=== PATIENT | female | born 1995 | race Caucasian/White ===

== ENCOUNTER → 2023-12-28 08:36 | Outpatient (REF) | payer OTHER, SELFPAY | LOC: PNTC 08:36 | PROVIDERS: ATTENDING PHYSICIAN Obstetrics & Gynecology | DX: Z36.0 Encounter for antenatal screening for chromosomal anomalies (principal); Z36.82 Encounter for antenatal screening for nuchal translucency | CPT/HCPCS: 76801; 76813 ==

== ENCOUNTER → 2024-01-25 09:17 | Outpatient (REF) | payer OTHER, SELFPAY | LOC: PNTC 09:17 | PROVIDERS: ATTENDING PHYSICIAN Obstetrics & Gynecology | DX: O99.210 Obesity complicating pregnancy, unspecified trimester (principal) | CPT/HCPCS: 76805 ==

== ENCOUNTER → 2024-02-22 09:15 | Outpatient (REF) | payer OTHER, SELFPAY | LOC: PNTC 09:15 | PROVIDERS: ATTENDING PHYSICIAN Obstetrics & Gynecology | DX: O99.210 Obesity complicating pregnancy, unspecified trimester (principal) | CPT/HCPCS: 76811 ==

== ENCOUNTER → 2024-03-21 09:18 | Outpatient (REF) | payer OTHER, SELFPAY | LOC: PNTC 09:18 | PROVIDERS: ATTENDING PHYSICIAN Obstetrics & Gynecology | DX: O99.210 Obesity complicating pregnancy, unspecified trimester (principal) | CPT/HCPCS: 76816 ==

== ENCOUNTER → 2024-04-15 08:56 | Outpatient (REF) | payer OTHER, SELFPAY ==
--- NOTE | 2024-04-15 09:39 | PN.DIAED06 ---
Meal Plan - Gestational
- Breakfast
Gestational Diabetes Meal Plan Name: 2000 calories
Breakfast - Total Carbohydrate (grams): 45
Breakfast - Starch Carbohydrate: 2
Breakfast - Fruit Carbohydrate: 0
Breakfast - Milk Carbohydrate: 1
Breakfast - Nonstarchy Vegetables: Yes
Breakfast - Meat/Protein: 1
Breakfast - Fat: 2
- Morning Snack
Morning Snack - Total Carbohydrate (grams): 30
Morning Snack - Starch Carbohydrate: 1
Morning Snack - Fruit Carbohydrate: 0
Morning Snack - Milk Carbohydrate: 1
Morning Snack - Nonstarchy Vegetables: Yes
Morning Snack - Meat/Protein: 0
Morning Snack - Fat: 0
- Lunch
Lunch - Total Carbohydrate (grams): 45
Lunch - Starch Carbohydrate: 1
Lunch - Fruit Carbohydrate: 1
Lunch - Milk Carbohydrate: 1
Lunch - Nonstarchy Vegetables: Yes
Lunch - Meat/Protein: 2
Lunch - Fat: 2
- Afternoon Snack
Afternoon Snack - Total Carbohydrate (grams): 30
Afternoon Snack - Starch Carbohydrate: 1
Afternoon Snack - Fruit Carbohydrate: 1
Afternoon Snack - Milk Carbohydrate: 0
Afternoon Snack - Nonstarchy Vegetables: Yes
Afternoon Snack - Meat/Protein: 1
Afternoon Snack - Fat: 0
- Dinner
Dinner - Total Carbohydrate (grams): 45
Dinner - Starch Carbohydrate: 2
Dinner - Fruit Carbohydrate: 1
Dinner - Milk Carbohydrate: 0
Dinner - Nonstarchy Vegetables: Yes
Dinner - Meat/Protein: 2
Dinner - Fat: 2
- Evening Snack
Evening Snack - Total Carbohydrate (grams): 45
Evening Snack - Starch Carbohydrate: 1
Evening Snack - Fruit Carbohydrate: 1
Evening Snack - Milk Carbohydrate: 1
Evening Snack - Nonstarchy Vegetables: Yes
Evening Snack - Meat/Protein: 1
Evening Snack - Fat: 0
--- NOTE | 2024-04-18 08:08 | PN.DIAED02 ---
Referral
Referred For: Gestational Diabetes Self-Management Training
PHI Release Authorization Form Signed: Yes
Care Plan
- Education Needs
Patient Education Needs: Preconception care//gestational diabetes management
Recommended Diabetes Training Program based on assessment: Gestational Diabetes Management
- Plan of Care
Plan of Care:
Met with Sanju for new diagnosis GDM. EDC07/07/24, gender unknown. Discussed what is occurring in her body and importance to maintain good blood sugar control to prevent complications (macrosomia, hypoglycemia). Provided with and instructions given
on the One Touch Verio glucometer, aware of testing pattern (FBS and 2 hr pp every meal), expected results (FBS <96 Mg/dl and 2 hr pp <120 mg/dl), testing technique and rotating testing sites. [facility],she has [facility] number. Log sheet provided to record results and Sanju will ttae if testing 1 hr pp (result <140 mg/dl). ISRAEL Irby to call in RX for test strips and lancets. Discussed macronutrients and impact each plays in glucose
metabolism. 5'7' 268# pre pregnanat. Provided with [id number] gordon ADA GDM meal plan. Sanju works [employer] sh[employer] [id number] so discussed how timing of meals is a little different from the provided meal plan. She typically sleeps for 4-6 hrs so FBS will
be skewed. Aware not to consume fruit/fruit juice for at least 5 hrs after waking. Provided with 'Choose Your foods' booklet, as GDM booklet and handout on snack options. Reviewed reading foods labels for tatal carbs in relation to serving size. She
has a spin bike but states that is getting difficult as the develops. Whe does walk 2-3 times/week. Sanju will call if any questions, she is aware that as the develops, that she may require insulin.
== END ==
LOC: DES 08:56
PROVIDERS: ATTENDING PHYSICIAN Obstetrics & Gynecology; FAMILY PHYSICIAN Nurse Practitioner Family
DX: O24.419 Gestational diabetes mellitus in pregnancy, unspecified control (principal)
CPT/HCPCS: 99078

== ENCOUNTER 2024-05-12 20:14 | Observation (INO) | payer OTHER, SELFPAY ==
[2024-05-12 20:34] VITALS: BP 139/70; BMI 45.5
== END 2024-05-12 21:07 | disposition home or self-care (01) ==
LOC: LDRP 20:14
PROVIDERS: ADMITTING PHYSICIAN Obstetrics & Gynecology; FAMILY PHYSICIAN Internal Medicine
DX: O36.8130 Decreased fetal movements, third trimester, not applicable or unspecified (principal); Z3A.32 32 weeks gestation of pregnancy; O24.410 Gestational diabetes mellitus in pregnancy, diet controlled; O13.3 Gestational [pregnancy-induced] hypertension without significant proteinuria, third trimester; Z79.82 Long term (current) use of aspirin
CPT/HCPCS: 59025; G0378

== ENCOUNTER → 2024-05-19 07:49 | Outpatient (REF) | payer OTHER, SELFPAY | LOC: PNTC 07:49 | PROVIDERS: ATTENDING PHYSICIAN Obstetrics & Gynecology | DX: O24.419 Gestational diabetes mellitus in pregnancy, unspecified control (principal) | CPT/HCPCS: 59025; 76816 ==

== ENCOUNTER → 2024-05-26 13:49 | Outpatient (REF) | payer OTHER, SELFPAY | LOC: PNTC 13:49 | PROVIDERS: ATTENDING PHYSICIAN Obstetrics & Gynecology | DX: O24.419 Gestational diabetes mellitus in pregnancy, unspecified control (principal) | CPT/HCPCS: 59025; 76815 ==

== ENCOUNTER → 2024-06-02 13:50 | Outpatient (REF) | payer OTHER, SELFPAY | LOC: PNTC 13:50 | PROVIDERS: ATTENDING PHYSICIAN Obstetrics & Gynecology | DX: O24.419 Gestational diabetes mellitus in pregnancy, unspecified control (principal) | CPT/HCPCS: 59025; 76815 ==

== ENCOUNTER 2024-06-04 08:28 | Observation (INO) | payer OTHER, SELFPAY ==
[2024-06-04 08:56] VITALS: BP 136/69; BMI 46.6
[2024-06-04 09:20] LABS: Hematocrit 37.6 % (37.0-47.0); Hemoglobin 12.6 g/dL (12.0-16.0); Mean Corp Hgb Conc. 33.5 g/dL (33.0-37.0); Mean Corpuscular Hgb 26.7 pg (27.0-31.0); Mean Corpuscular Volume 79.7 fL (81.0-99.0); Mean Platelet Volume 10.6 fL (7.4-10.4); Platelet Count 340 10^3/uL (130-400); Red Blood Cell Count 4.72 10^6/uL (4.20-5.40); Red Cell Dist. Width 13.8 % (11.5-14.5); Urine Albumin Negative (Neg - Trace); Urine Bilirubin Negative (Negative); Urine Character Clear (Clear); Urine Color Yellow; Urine Glucose Negative (Negative); Urine Ketone Negative (Negative); Urine Leukocyte Negative (Negative); Urine Nitrite Negative (Negative); Urine Occult Blood Negative (Negative); Urine Specific Gravity 1.005 (<1.030); Urine Urobilinogen Negative (Neg - 1+); White Blood Cell Count 13.9 10^3/uL (4.8-10.8)
[2024-06-04 09:37] LABS: ALT (SGPT) 17 U/L (0-35); AST (SGOT) 21 U/L (14-36); Albumin 3.6 g/dl (3.5-5.0); Alkaline Phosphatase 149 U/L (38-126); Blood Urea Nitrogen 13 mg/dl (7-17); Calcium 9.7 mg/dl (8.4-10.2); Carbon Dioxide 21 mmol/L (22-30); Chloride 107 mmol/L (98-107); Estimated Creatinine Clearance > 125 ml/min; Glucose 103 mg/dl (70-99); Potassium 4.5 mmol/L (3.5-5.1); Sodium 135 mmol/L (135-145); Total Bilirubin 0.2 mg/dl (0.2-1.3); Total Protein 6.5 g/dl (6.3-8.2); eGFR > 60.00
== END 2024-06-04 10:27 | disposition home or self-care (01) ==
LOC: LDRP 08:28
PROVIDERS: ADMITTING PHYSICIAN Obstetrics & Gynecology
DX: O14.03 Mild to moderate pre-eclampsia, third trimester (principal); O24.410 Gestational diabetes mellitus in pregnancy, diet controlled; Z3A.35 35 weeks gestation of pregnancy; O99.213 Obesity complicating pregnancy, third trimester
CPT/HCPCS: 80053; 81003; 85027; 86850; 86900; 86901

== ENCOUNTER → 2024-06-09 13:54 | Outpatient (REF) | payer OTHER, SELFPAY | LOC: PNTC 13:54 | PROVIDERS: ATTENDING PHYSICIAN Obstetrics & Gynecology | DX: O24.419 Gestational diabetes mellitus in pregnancy, unspecified control (principal) | CPT/HCPCS: 59025; 76815 ==

== ENCOUNTER → 2024-06-15 15:18 | Outpatient (REF) | payer OTHER, SELFPAY | LOC: PNTC 15:18 | PROVIDERS: ATTENDING PHYSICIAN Obstetrics & Gynecology | DX: O24.419 Gestational diabetes mellitus in pregnancy, unspecified control (principal) | CPT/HCPCS: 59025; 76816 ==

== ENCOUNTER 2024-06-16 18:53 | Inpatient (IN) | payer OTHER, SELFPAY ==
[2024-06-16 19:15] VITALS: BP 126/74
[2024-06-16 19:32] LABS: Glucose - Point of Care 116 mg/dl (70-99)
[2024-06-16 19:36] VITALS: BMI 46.6
[2024-06-16 19:50] LABS: % Basophils 0.3 % (0-2); % Eosinophils 0.6 % (0-6); % Immature Granulocytes 0.7 % (0-0.5); % Lymphocytes 14.8 % (20.5-51.1); % Monocytes 4.3 % (1.7-9.3); % Neutrophils 79.3 % (42.2-75.2); Absolute Eosinophils 0.1 10^3/uL (0-0.7); Absolute Immature Granulocytes 0.1 10^3/uL (0-0.05); Absolute Monocytes 0.6 10^3/uL (0.1-0.6); Absolute Neutrophils 10.9 10^3/uL (1.4-6.5); Hematocrit 36.5 % (37.0-47.0); Hemoglobin 12.6 g/dL (12.0-16.0); Mean Corp Hgb Conc. 34.5 g/dL (33.0-37.0); Mean Corpuscular Hgb 26.8 pg (27.0-31.0); Mean Corpuscular Volume 77.7 fL (81.0-99.0); Mean Platelet Volume 10.8 fL (7.4-10.4); Nucleated Red Blood Cells % 0 %; Platelet Count 341 10^3/uL (130-400); Red Cell Dist. Width 14.2 % (11.5-14.5); White Blood Cell Count 13.7 10^3/uL (4.8-10.8)
[2024-06-16 20:11] LABS: ALT (SGPT) 15 U/L (0-35); AST (SGOT) 20 U/L (14-36); Albumin 3.5 g/dl (3.5-5.0); Alkaline Phosphatase 155 U/L (38-126); Blood Urea Nitrogen 12 mg/dl (7-17); Calcium 9.7 mg/dl (8.4-10.2); Carbon Dioxide 18 mmol/L (22-30); Chloride 107 mmol/L (98-107); Estimated Creatinine Clearance > 125 ml/min; Glucose 112 mg/dl (70-99); Potassium 4.2 mmol/L (3.5-5.1); Sodium 134 mmol/L (135-145); Total Bilirubin 0.2 mg/dl (0.2-1.3); Total Protein 6.3 g/dl (6.3-8.2); eGFR > 60.00
[2024-06-16] MEDS: CYTOTEC 25 MICROGRAM VAG (20:26)
[2024-06-17] MEDS: CYTOTEC 50 MICROGRAM PO ×3 (00:05→08:03)
[2024-06-17 00:14] LABS: Glucose - Point of Care 86 mg/dl (70-99)
[2024-06-17 04:17] LABS: Glucose - Point of Care 82 mg/dl (70-99)
[2024-06-17 08:09] LABS: Glucose - Point of Care 139 mg/dl (70-99)
[2024-06-17] MEDS: LR 1000 IV ×3 (08:29→17:38)
[2024-06-17] MEDS: PENICILLIN 110 UNITS IV (12:15)
[2024-06-17 12:22] LABS: Glucose - Point of Care 114 mg/dl (70-99)
[2024-06-17] MEDS: PITOCIN 30 UNITS/NSS 500 ML IV (13:36)
[2024-06-17] MEDS: CYTOTEC PO ×2 (14:39→16:02)
[2024-06-17] MEDS: PENICILLIN 55 UNITS IV ×2 (16:01→20:03)
[2024-06-17 16:05] LABS: Glucose - Point of Care 109 mg/dl (70-99)
[2024-06-17] MEDS: SUBLIMAZE 100 MCG EPIDURAL (16:54)
[2024-06-17] MEDS: FENTANYL/BUPIVACAINE 100 EPIDURAL (16:54)
[2024-06-17 20:26] LABS: Glucose - Point of Care 110 mg/dl (70-99)
[2024-06-17 23:59] LABS: Glucose - Point of Care 78 mg/dl (70-99)
[2024-06-18] MEDS: FENTANYL/BUPIVACAINE 100 EPIDURAL (00:22)
[2024-06-18 02:10] LABS: Glucose - Point of Care 120 mg/dl (70-99)
[2024-06-18] MEDS: SUBLIMAZE 100 MCG EPIDURAL (04:10)
[2024-06-18] MEDS: PENICILLIN 55 UNITS IV ×2 (04:11)
[2024-06-18 04:14] LABS: Glucose - Point of Care 101 mg/dl (70-99)
[2024-06-18] MEDS: PITOCIN 30 UNITS/NSS 500 ML IV (06:29)
[2024-06-18] MEDS: MOTRIN 600 MG PO ×3 (07:10→20:47)
[2024-06-18] MEDS: TYLENOL 650 MG PO ×3 (07:11→17:13)
[2024-06-18] MEDS: PRENATAL PLUS 1 TABLET PO (11:39)
[2024-06-19] MEDS: MOTRIN 600 MG PO ×2 (05:03→11:05)
[2024-06-19 07:01] LABS: Hematocrit 32.7 % (37.0-47.0); Hemoglobin 11.1 g/dL (12.0-16.0)
[2024-06-19] MEDS: TYLENOL 650 MG PO (08:35)
[2024-06-19] MEDS: SENOKOT-S 1 TABLET PO (08:36)
[2024-06-19] MEDS: PRENATAL PLUS 1 TABLET PO (08:36)
[2024-06-20] MEDS: MOTRIN 600 MG PO (01:14)
[2024-06-20] MEDS: PRENATAL PLUS 1 TABLET PO (09:38)
[2024-06-20] MEDS: SENOKOT-S 1 TABLET PO (09:38)
[2024-06-21 13:58] LABS: Syphilis/T. pallidum Ab Reflex Negative (Negative)
== END 2024-06-20 12:46 | disposition home or self-care (01) | DRG 807 ==
LOC: LDRP 18:53
PROVIDERS: Obstetrics & Gynecology; ADMITTING PHYSICIAN Obstetrics & Gynecology; FAMILY PHYSICIAN Internal Medicine; REFERRING PHYSICIAN Obstetrics & Gynecology
PROC: 3E0P7VZ Introduction of Hormone into Female Reproductive, Via Natural or Artificial Opening (ICD-10-PCS; 2024-06-16)
PROC: 10H07YZ Insertion of Other Device into Products of Conception, Via Natural or Artificial Opening (ICD-10-PCS; 2024-06-17)
PROC: 10E0XZZ Delivery of Products of Conception, External Approach (ICD-10-PCS; 2024-06-18)
DX: O24.420 Gestational diabetes mellitus in childbirth, diet controlled (principal); Z37.0 Single live birth; Z3A.37 37 weeks gestation of pregnancy; O14.04 Mild to moderate pre-eclampsia, complicating childbirth; O99.824 Streptococcus B carrier state complicating childbirth; O69.82X0 Labor and delivery complicated by other cord entanglement, without compression, not applicable or unspecified
CPT/HCPCS: 88307; 80053; 82962; 85014; 85018; 85025; 86780; 86850; 86900; 86901